=== PATIENT | female | born 1990 | race American Indian/Alaskan Native ===

== ENCOUNTER 2017-04-24 18:13 | Emergency (ER) | payer MEDICAID ==
[2017-04-24 21:29] LABS: Hematocrit 37.4 % (30.3-42.9); Hemoglobin 12.6 gm/dl (10.1-14.3); Mean Corpuscular HGB Conc 34 % (30-34); Mean Corpuscular Hemoglobin 28 pg (28-32); Mean Corpuscular Volume 82 fl (79-97); Platelet Count 156 K/mm3 (140-440); Red Blood Count 4.56 M/mm3 (3.65-5.03); Red Cell Distribution Width 13.1 % (13.2-15.2); White Blood Count 13.5 K/mm3 (4.5-11.0)
[2017-04-24 21:32] LABS: Anion Gap 16 mmol/L; Blood Urea Nitrogen 7 mg/dL (7-17); Calcium 8.8 mg/dL (8.4-10.2); Carbon Dioxide 23 mmol/L (22-30); Chloride 97.8 mmol/L (98-107); Glucose 104 mg/dL (65-100); Potassium 4.1 mmol/L (3.6-5.0); Sodium 133 mmol/L (137-145)
[2017-04-25] MEDS ORDERED: NORCO 5/325 PO ONE (00:01)
[2017-04-25] MEDS ORDERED: KEFLEX PO ONE (00:01)
[2017-04-25] MEDS ORDERED: DELTASONE PO ONE (00:05)
--- NOTE | 2017-04-25 00:06 | Emergency Department Report ---
HPI - General Chief Complaint: Allergic Reaction Time Seen by Provider: 04/24/17 23:55 - HPI HPI: 26 year old female with no significant past medical history presents to the hospital with allergic reaction to her right hand and forearm after receiving the arlin tattoo. Patient is currently 3 months . She received a tattoo on the 12th on the first day of a [place]. Patient was taking Benadryl for swelling and itching with mild improvement. Patient just returned back home today and now presents to the ED. Positive warmth, swelling, pain, and pruritus. Pain rated moderate to severe intensity and constant and patient having trouble sleeping. Worse with palpation and movement. No alleviating factors reported. No fever reported. Patient taken Benadryl and vitamins. 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 ED Past Medical Hx - Past Medical History Previous Medical History?: No - Surgical History Past Surgical History?: No - Social History Smoking Status: Never Smoker Substance Use Type: None - Medications Home Medications: Home Medications Medication Instructions Recorded Confirmed Last Taken Type Cyclobenzaprine [Flexeril] 10 mg PO TID PRN #20 tablet 01/27/16 Unknown Rx Ibuprofen [Motrin] 600 mg PO Q8H PRN #30 tablet 01/27/16 Unknown Rx Sulfamethoxazole/Trimethoprim 1 each PO BID 01/27/16 01/27/16 01/27/16 11:00 History [Bactrim DS TAB] Cephalexin [Keflex] 500 mg PO Q6HR #7 capsule 04/25/17 Unknown Rx HYDROcodone/APAP 5-325 [Adair 1 each PO Q6HR PRN #20 tablet 04/25/17 Unknown Rx 5/325] predniSONE [Deltasone] 40 mg PO QDAY 5 Days 04/25/17 Unknown Rx ED Review of Systems ROS: Stated complaint: ALLERGIC REACTION/SKIN Other details as noted in HPI Comment: All other systems reviewed and negative Other: Constitutional: No fevers chills Eyes: No eye pain visual changes ENT: No ear pain or throat pain Neck: Denies pain Respiratory: Denies cough wheezing shortness of breath Cardiovascular: Denies chest pain, palpitations, syncope GI: Denies abdominal pain, nausea, vomiting, diarrhea : Denies dysuria, urinary frequency, or urgency Musculoskeletal: right arm pain as per hpi Skin: as per hpi Neurologic: Denies headache, numbness, weakness Psychiatric: Denies suicidal ideation, hallucinations Physical Exam - Physical Exam Vital Signs: Vital Signs 04/24/17 20:22 Temperature 97.9 F Pulse Rate 60 Respiratory 18 Rate Blood Pressure 120/90 O2 Sat by Pulse 100 Oximetry Physical Exam: General: No limitations, patient is alert in no acute distress Head exam: Atraumatic, normocephalic Eyes exam: Normal appearance ENT: Moist mucous membrane, normal oropharynx Neck exam: Normal inspection, full range of motion, no meningismus nontender Respiratory exam: Clear to auscultation bilateral, no wheezes, rales, crackles Cardiovascular: Normal rate and rhythm, normal heart sounds Abdomen: Soft, nondistended, and nontender Extremity: Arlin tattoo noted to right hand and right forearm. Positive associated generalized swelling, warmth, and erythema. Tenderness to palpation. Back: Normal Inspection, full range of motion, no tenderness Neurologic: Alert, oriented x3, cranial nerves intact, no motor or sensory deficit Psychiatric: normal affect, normal mood Skin: Warm, dry, intact ED Course Vital Signs 04/24/17 20:22 Temperature 97.9 F Pulse Rate 60 Respiratory 18 Rate Blood Pressure 120/90 O2 Sat by Pulse 100 Oximetry - Reevaluation(s) Reevaluation #1: 04/25/17 00:08 Prednisone, Keflex, Adair ordered - Consultations Consultation #1: 04/25/17 00:05 case d/w Dr Aden. Meds including prednisone ok for short course during ED Medical Decision Making - Lab Data Result diagrams: 04/24/17 20:53 04/24/17 20:53 Lab Results 04/24/17 04/24/17 Range/Units 20:53 20:53 WBC 13.5 H (4.5-11.0) K/mm3 RBC 4.56 (3.65-5.03) M/mm3 Hgb 12.6 (10.1-14.3) gm/dl Hct 37.4 (30.3-42.9) % MCV 82 (79-97) fl MCH 28 (28-32) pg MCHC 34 (30-34) % RDW 13.1 L (13.2-15.2) % Plt Count 156 (140-440) K/mm3 Sodium 133 L (137-145) mmol/L Potassium 4.1 (3.6-5.0) mmol/L Chloride 97.8 L (98-107) mmol/L Carbon Dioxide 23 (22-30) mmol/L Anion Gap 16 mmol/L BUN 7 (7-17) mg/dL Creatinine 0.5 L (0.7-1.2) mg/dL Estimated GFR > 60 ml/min BUN/Creatinine Ratio 14.00 % Glucose 104 H (65-100) mg/dL Calcium 8.8 (8.4-10.2) mg/dL - Medical Decision Making Patient will be treated for local allergic reaction and possible associated infection. Patient has mild hyponatremia follow-up encouraged. - Differential Diagnosis allergic reaction, cellulitis Critical Care Time: No Critical care attestation.: If time is entered above; I have spent that time in minutes in the direct care of this critically ill patient, excluding procedure time. ED Disposition Clinical Impression: Dye allergic reaction, Cellulitis, , Hyponatremia Disposition: TO HOME OR SELFCARE Is pt being admited?: No Does the pt Need Aspirin: No Condition: Stable Instructions: Acute Rash (ED), Hyponatremia (ED) Additional Instructions: Take medications as prescribed and continue Benadryl. Your sodium today is 133 was slightly below normal. Follow-up with her doctor for recheck. Return if symptoms worsen Prescriptions: Cephalexin [Keflex] 500 mg PO Q6HR #7 capsule HYDROcodone/APAP 5-325 [Adair 5/325] 1 each PO Q6HR PRN #20 tablet PRN Reason: Pain predniSONE [Deltasone] 40 mg PO QDAY 5 Days Referrals: PRIMARY CARE, [Primary Care Provider] - 3-5 Days DALJIT ADEN MD [Staff Physician] - 3-5 Days Time of Disposition: 12:30
[2017-04-25 00:18] VITALS: BP 111/75
== END 2017-04-25 00:22 | disposition home or self-care (01) ==
LOC: ED 18:13
DX: O26.891 Other specified pregnancy related conditions, first trimester (principal); T78.49XA Other allergy, initial encounter; E87.1 Hypo-osmolality and hyponatremia; L03.113 Cellulitis of right upper limb; Z3A.12 12 weeks gestation of pregnancy
CPT/HCPCS: 36415; 80048; 85027; 99283; J7512